=== PATIENT | female | born 1965 | race Two or more races ===

== ENCOUNTER 2018-04-19 10:56 | Outpatient (CLI) | payer MEDICARE, OTHER | END 2018-04-19 23:59 | disposition home or self-care (01) | LOC: WOU 10:56 → EDBD 10:56 → WOU 23:59 | PROVIDERS: ATTEND Podiatrist Foot & Ankle Surgery | DX: S92.312D Displaced fracture of first metatarsal bone, left foot, subsequent encounter for fracture with routine healing (principal); S90.122D Contusion of left lesser toe(s) without damage to nail, subsequent encounter; X58.XXXD Exposure to other specified factors, subsequent encounter; R60.0 Localized edema; E11.42 Type 2 diabetes mellitus with diabetic polyneuropathy; E11.21 Type 2 diabetes mellitus with diabetic nephropathy; E11.22 Type 2 diabetes mellitus with diabetic chronic kidney disease; I12.0 Hypertensive chronic kidney disease with stage 5 chronic kidney disease or end stage renal disease; N18.6 End stage renal disease; Z99.2 Dependence on renal dialysis; Z87.891 Personal history of nicotine dependence | CPT/HCPCS: 73630-TC; G0463; Z7610 ==

== ENCOUNTER 2018-04-27 08:50 | Outpatient (CLI) | payer MEDICARE, OTHER | END 2018-04-27 23:59 | disposition home or self-care (01) | LOC: WOU 08:50 | PROVIDERS: ATTEND Podiatrist Foot & Ankle Surgery | DX: S92.312D Displaced fracture of first metatarsal bone, left foot, subsequent encounter for fracture with routine healing (principal); X58.XXXD Exposure to other specified factors, subsequent encounter; E11.22 Type 2 diabetes mellitus with diabetic chronic kidney disease; N18.6 End stage renal disease; Z99.2 Dependence on renal dialysis; E11.42 Type 2 diabetes mellitus with diabetic polyneuropathy; M79.672 Pain in left foot; R60.0 Localized edema | CPT/HCPCS: Z7610 ==

== ENCOUNTER 2018-05-05 09:30 | Outpatient (CLI) | payer MEDICARE, OTHER | END 2018-05-05 23:59 | disposition home or self-care (01) | LOC: WOU 09:30 | PROVIDERS: ATTEND Podiatrist Foot & Ankle Surgery | DX: R60.0 Localized edema (principal); I70.203 Unspecified atherosclerosis of native arteries of extremities, bilateral legs; S92.312D Displaced fracture of first metatarsal bone, left foot, subsequent encounter for fracture with routine healing; X58.XXXD Exposure to other specified factors, subsequent encounter | CPT/HCPCS: 93970-TC; Z7610 ==

== ENCOUNTER 2018-05-10 10:00 | Outpatient (CLI) | payer MEDICARE, OTHER | END 2018-05-10 23:59 | disposition home or self-care (01) | LOC: WOU 10:00 | PROVIDERS: ATTEND Podiatrist Foot & Ankle Surgery | DX: S92.312D Displaced fracture of first metatarsal bone, left foot, subsequent encounter for fracture with routine healing (principal); X58.XXXD Exposure to other specified factors, subsequent encounter; E11.621 Type 2 diabetes mellitus with foot ulcer; L97.528 Non-pressure chronic ulcer of other part of left foot with other specified severity; E11.22 Type 2 diabetes mellitus with diabetic chronic kidney disease; E11.42 Type 2 diabetes mellitus with diabetic polyneuropathy; N18.6 End stage renal disease; Z99.2 Dependence on renal dialysis; Z79.4 Long term (current) use of insulin; I73.9 Peripheral vascular disease, unspecified | CPT/HCPCS: 29445; A6402; Z7610 ==

== ENCOUNTER 2018-05-31 08:37 | Outpatient (CLI) | payer MEDICARE, OTHER | END 2018-05-31 23:59 | disposition home or self-care (01) | LOC: WOU 08:37 | PROVIDERS: ATTEND Podiatrist Foot & Ankle Surgery | DX: S92.312D Displaced fracture of first metatarsal bone, left foot, subsequent encounter for fracture with routine healing (principal); X58.XXXD Exposure to other specified factors, subsequent encounter; E11.22 Type 2 diabetes mellitus with diabetic chronic kidney disease; E11.42 Type 2 diabetes mellitus with diabetic polyneuropathy; N18.6 End stage renal disease; Z99.2 Dependence on renal dialysis; Z79.4 Long term (current) use of insulin; R60.0 Localized edema | CPT/HCPCS: 29445; 73630; Z7610 ==

== ENCOUNTER 2018-07-05 09:46 | Outpatient (CLI) | payer MEDICARE, OTHER | END 2018-07-05 23:59 | disposition home or self-care (01) | LOC: WOU 09:46 | PROVIDERS: ATTEND Podiatrist Foot & Ankle Surgery | DX: S92.312K Displaced fracture of first metatarsal bone, left foot, subsequent encounter for fracture with nonunion (principal); X58.XXXD Exposure to other specified factors, subsequent encounter; E11.42 Type 2 diabetes mellitus with diabetic polyneuropathy; E11.22 Type 2 diabetes mellitus with diabetic chronic kidney disease; N18.6 End stage renal disease; Z99.2 Dependence on renal dialysis; Z79.4 Long term (current) use of insulin; L60.3 Nail dystrophy; M19.072 Primary osteoarthritis, left ankle and foot; M85.872 Other specified disorders of bone density and structure, left ankle and foot | CPT/HCPCS: 73630; G0463; Z7610 ==

== ENCOUNTER 2018-10-05 12:40 | Outpatient (CLI) | payer MEDICARE, OTHER | END 2018-10-05 23:59 | disposition home or self-care (01) | LOC: WOU 12:40 | PROVIDERS: ATTEND Podiatrist Foot & Ankle Surgery | DX: E11.610 Type 2 diabetes mellitus with diabetic neuropathic arthropathy (principal); E11.42 Type 2 diabetes mellitus with diabetic polyneuropathy; E11.22 Type 2 diabetes mellitus with diabetic chronic kidney disease; M84.675 Pathological fracture in other disease, left foot; I12.0 Hypertensive chronic kidney disease with stage 5 chronic kidney disease or end stage renal disease; N18.6 End stage renal disease; Z99.2 Dependence on renal dialysis; Z87.891 Personal history of nicotine dependence; M79.672 Pain in left foot; R60.0 Localized edema; Z79.4 Long term (current) use of insulin | CPT/HCPCS: Z7610 ==

== ENCOUNTER 2018-10-19 12:35 | Outpatient (CLI) | payer MEDICARE, MEDICAID | END 2018-10-19 23:59 | disposition home or self-care (01) | LOC: WOU 12:35 | PROVIDERS: ATTEND Podiatrist Foot & Ankle Surgery | DX: E11.610 Type 2 diabetes mellitus with diabetic neuropathic arthropathy (principal); E11.22 Type 2 diabetes mellitus with diabetic chronic kidney disease; N18.6 End stage renal disease; Z99.2 Dependence on renal dialysis; Z79.4 Long term (current) use of insulin; E11.42 Type 2 diabetes mellitus with diabetic polyneuropathy; M84.675 Pathological fracture in other disease, left foot | CPT/HCPCS: 29445; Z7610 ==

== ENCOUNTER 2018-11-17 10:03 | Outpatient (CLI) | payer MEDICARE, OTHER | END 2018-11-17 23:59 | disposition home or self-care (01) | LOC: MRI 10:03 | PROVIDERS: ATTEND Podiatrist Foot & Ankle Surgery | DX: E11.610 Type 2 diabetes mellitus with diabetic neuropathic arthropathy (principal); S92.312D Displaced fracture of first metatarsal bone, left foot, subsequent encounter for fracture with routine healing; M19.072 Primary osteoarthritis, left ankle and foot; X58.XXXD Exposure to other specified factors, subsequent encounter | CPT/HCPCS: 73718-TC ==

== ENCOUNTER 2018-11-30 12:50 | Outpatient (CLI) | payer MEDICARE, OTHER | END 2018-11-30 23:59 | disposition home or self-care (01) | LOC: WOU 12:50 | PROVIDERS: ATTEND Podiatrist Foot & Ankle Surgery | DX: E11.610 Type 2 diabetes mellitus with diabetic neuropathic arthropathy (principal); E11.42 Type 2 diabetes mellitus with diabetic polyneuropathy; M25.375 Other instability, left foot; M84.675A Pathological fracture in other disease, left foot, initial encounter for fracture; E11.22 Type 2 diabetes mellitus with diabetic chronic kidney disease; N18.6 End stage renal disease; Z99.2 Dependence on renal dialysis; B35.1 Tinea unguium; Z79.4 Long term (current) use of insulin ==

== ENCOUNTER 2018-12-30 10:10 | Outpatient (CLI) | payer MEDICARE, MEDICAID | END 2018-12-30 23:59 | disposition home or self-care (01) | LOC: WOU 10:10 | PROVIDERS: ATTEND Podiatrist Foot & Ankle Surgery | DX: E11.610 Type 2 diabetes mellitus with diabetic neuropathic arthropathy (principal); S92.312D Displaced fracture of first metatarsal bone, left foot, subsequent encounter for fracture with routine healing; E11.42 Type 2 diabetes mellitus with diabetic polyneuropathy; E11.22 Type 2 diabetes mellitus with diabetic chronic kidney disease; E11.21 Type 2 diabetes mellitus with diabetic nephropathy; N18.6 End stage renal disease; Z99.2 Dependence on renal dialysis; M25.375 Other instability, left foot; Z79.4 Long term (current) use of insulin; B35.1 Tinea unguium; R60.0 Localized edema; X58.XXXD Exposure to other specified factors, subsequent encounter | CPT/HCPCS: 29445; A6402 ==

== ENCOUNTER 2019-01-18 11:15 | Outpatient (CLI) | payer MEDICARE, MEDICAID | END 2019-01-18 23:59 | disposition home or self-care (01) | LOC: CT 11:15 | PROVIDERS: ATTEND Podiatrist Foot & Ankle Surgery | DX: S93.312A Subluxation of tarsal joint of left foot, initial encounter (principal); M19.072 Primary osteoarthritis, left ankle and foot; M85.88 Other specified disorders of bone density and structure, other site; M62.58 Muscle wasting and atrophy, not elsewhere classified, other site; A52.16 Charcot's arthropathy (tabetic); X58.XXXA Exposure to other specified factors, initial encounter; Y93.89 Activity, other specified; Y92.89 Other specified places as the place of occurrence of the external cause; Y99.8 Other external cause status | CPT/HCPCS: 73630-TC; 73700-TC ==

== ENCOUNTER 2019-01-27 09:37 | Outpatient (CLI) | payer MEDICARE, MEDICAID | END 2019-01-27 23:59 | disposition home or self-care (01) | LOC: MRI 09:37 | PROVIDERS: ATTEND Podiatrist Foot & Ankle Surgery | DX: S92.312D Displaced fracture of first metatarsal bone, left foot, subsequent encounter for fracture with routine healing (principal); E11.610 Type 2 diabetes mellitus with diabetic neuropathic arthropathy; X58.XXXD Exposure to other specified factors, subsequent encounter | CPT/HCPCS: 73718-TC ==

== ENCOUNTER 2019-02-03 10:00 | Outpatient (CLI) | payer MEDICARE, MEDICAID | END 2019-02-03 23:59 | disposition home or self-care (01) | LOC: WOU 10:00 | PROVIDERS: ATTEND Podiatrist Foot & Ankle Surgery | DX: E11.610 Type 2 diabetes mellitus with diabetic neuropathic arthropathy (principal); E11.42 Type 2 diabetes mellitus with diabetic polyneuropathy; E11.22 Type 2 diabetes mellitus with diabetic chronic kidney disease; I12.0 Hypertensive chronic kidney disease with stage 5 chronic kidney disease or end stage renal disease; N18.6 End stage renal disease; Z99.2 Dependence on renal dialysis; Z87.891 Personal history of nicotine dependence; S92.312A Displaced fracture of first metatarsal bone, left foot, initial encounter for closed fracture; X58.XXXA Exposure to other specified factors, initial encounter; Y92.89 Other specified places as the place of occurrence of the external cause; R60.0 Localized edema; Z79.4 Long term (current) use of insulin; Z79.899 Other long term (current) drug therapy ==

== ENCOUNTER 2019-02-07 11:13 | Outpatient (CLI) | payer MEDICARE, MEDICAID | END 2019-02-07 23:59 | disposition home or self-care (01) | LOC: WOU 11:13 | PROVIDERS: ATTEND Podiatrist Foot & Ankle Surgery | DX: E11.610 Type 2 diabetes mellitus with diabetic neuropathic arthropathy (principal); E11.42 Type 2 diabetes mellitus with diabetic polyneuropathy; E11.22 Type 2 diabetes mellitus with diabetic chronic kidney disease; N18.6 End stage renal disease; Z99.2 Dependence on renal dialysis; Z79.4 Long term (current) use of insulin; R60.0 Localized edema ==

== ENCOUNTER 2019-03-07 10:10 | Outpatient (CLI) | payer MEDICARE, MEDICAID | END 2019-03-07 23:59 | disposition home or self-care (01) | LOC: WOU 10:10 | PROVIDERS: ATTEND Podiatrist Foot & Ankle Surgery | DX: E11.610 Type 2 diabetes mellitus with diabetic neuropathic arthropathy (principal); S92.312D Displaced fracture of first metatarsal bone, left foot, subsequent encounter for fracture with routine healing; X58.XXXD Exposure to other specified factors, subsequent encounter; E11.42 Type 2 diabetes mellitus with diabetic polyneuropathy; E11.21 Type 2 diabetes mellitus with diabetic nephropathy; E11.22 Type 2 diabetes mellitus with diabetic chronic kidney disease; N18.6 End stage renal disease; Z99.2 Dependence on renal dialysis; Z79.4 Long term (current) use of insulin; R60.0 Localized edema; M20.42 Other hammer toe(s) (acquired), left foot; M79.672 Pain in left foot | CPT/HCPCS: G0463 ==

== ENCOUNTER 2019-04-07 09:40 | Outpatient (CLI) | payer MEDICARE, OTHER | END 2019-04-07 23:59 | disposition home or self-care (01) | LOC: WOU 09:40 | PROVIDERS: ATTEND Podiatrist Foot & Ankle Surgery | DX: M84.675 Pathological fracture in other disease, left foot (principal); E11.610 Type 2 diabetes mellitus with diabetic neuropathic arthropathy; E11.42 Type 2 diabetes mellitus with diabetic polyneuropathy; E11.22 Type 2 diabetes mellitus with diabetic chronic kidney disease; I12.0 Hypertensive chronic kidney disease with stage 5 chronic kidney disease or end stage renal disease; N18.6 End stage renal disease; Z99.2 Dependence on renal dialysis; Z87.891 Personal history of nicotine dependence; Z79.4 Long term (current) use of insulin; M79.672 Pain in left foot; R60.0 Localized edema; S90.32XA Contusion of left foot, initial encounter; X58.XXXA Exposure to other specified factors, initial encounter; Y92.89 Other specified places as the place of occurrence of the external cause | CPT/HCPCS: G0463 ==

== ENCOUNTER 2019-05-09 10:15 | Outpatient (CLI) | payer MEDICARE, OTHER | END 2019-05-09 23:59 | disposition home or self-care (01) | LOC: RAD 10:15 | PROVIDERS: ATTEND Podiatrist Foot & Ankle Surgery | DX: M84.475D Pathological fracture, left foot, subsequent encounter for fracture with routine healing (principal); M24.375 Pathological dislocation of left foot, not elsewhere classified; M81.0 Age-related osteoporosis without current pathological fracture; I70.90 Unspecified atherosclerosis | CPT/HCPCS: 73610-TC; 73630-TC ==